=== PATIENT | male | born 1980 | race Hispanic/Latino ===

== ENCOUNTER → 2023-01-10 | Outpatient (RCR) | payer OTHER ==
[~2023-01-10] MED LIST: LIDOCAINE VISC 2% SOLN 15 ML UDC ONE; MINERAL OIL/PETROLAT/GLYCERI 6OZ BTL ONE; MUPIROCIN 2% OINT 22 GM TUBE ONE
== END ==
LOC: WCC 12-20 09:26
PROVIDERS: ATTEND Family Medicine Adult Medicine
DX: E11.628 Type 2 diabetes mellitus with other skin complications (principal); I10 Essential (primary) hypertension; T22.352A Burn of third degree of left shoulder, initial encounter; T54.91XS Toxic effect of unspecified corrosive substance, accidental (unintentional), sequela
CPT/HCPCS: 36415; 82948